=== PATIENT | male | born 1950 | race Two or more races ===

== ENCOUNTER 2018-10-13 17:14 | Emergency (ER) | payer OTHER, MEDICAID ==
[~2018-10-13] VITALS: Ht 170.2 cm; Wt 77.1 kg
[~2018-10-13 17:14] MED LIST: ASPI-231 PO; BENA20TA14 PO; METF-370 PO; PRAV20TA3 PO
[2018-10-13] MEDS ORDERED: methylPREDNISolone SOD SUCC 125 MG/2 ML VL IM ONE (19:00)
[2018-10-13 20:06] VITALS: BP 138/73
== END 2018-10-13 20:07 | disposition home or self-care (01) ==
LOC: ER 17:14
DX: S86.912A Strain of unspecified muscle(s) and tendon(s) at lower leg level, left leg, initial encounter (principal); X58.XXXA Exposure to other specified factors, initial encounter; Y93.89 Activity, other specified; Y92.89 Other specified places as the place of occurrence of the external cause; Y99.8 Other external cause status
CPT/HCPCS: 73562; 96372; 99283; J2930